=== PATIENT | male | born 1985 | race Caucasian/White ===

== ENCOUNTER 2020-09-02 20:36 | Emergency (ER) | payer OTHER ==
[2020-09-02 20:45] VITALS: BMI 39.9
[2020-09-02] MEDS ORDERED: KETOROLAC TROMETHAMINE 30 MG/1 ML VIAL IVPUSH ONE (20:48)
[2020-09-02] MEDS ORDERED: ONDANSETRON 4 MG/2 ML VIAL IVPUSH ONE (20:48)
[2020-09-02] MEDS ORDERED: SODIUM CHLORIDE 1,000 ML IV STA (20:49)
[2020-09-02] MEDS ORDERED: KETOROLAC TROMETHAMINE 30 MG/1 ML VIAL ONE (21:32)
[2020-09-02] MEDS ORDERED: ONDANSETRON 4 MG/2 ML VIAL ONE (21:32)
[2020-09-02 22:00] LABS: BASO % 0.4 % (0-2.0); HEMATOCRIT 49.8 % (35.4-49); HEMOGLOBIN 16.8 GM/dL (11.7-16.9); LYMPH % 5.9 % (8-40); MCH 28.9 pg (25.7-33.7); MCHC 33.7 g/dl (32.0-35.9); MEAN CELL VOLUME 85.6 fl (80-96); MEAN PLT VOLUME 8.3 fl (7.5-11.1); MONO % 2.1 % (3.8-10.2); NEUT % 91.6 % (42.8-82.8); PLATELET COUNT 346 K/MM3 (134-434); RBC 5.81 M/mm3 (4.00-5.60); WHITE BLOOD COUNT 16.5 K/mm3 (4.0-10.0)
[2020-09-02 22:05] LABS: PROTHROMBIN TIME (PATIENT) 12.3 SEC (9.7-13.0)
[2020-09-02 22:25] LABS: POTASSIUM 3.9 mmol/L (3.5-5.1)
[2020-09-02 22:27] LABS: CALCIUM 10.6 mg/dL (8.5-10.1)
[2020-09-02 22:28] LABS: ALBUMIN 4.5 g/dl (3.4-5.0)
[2020-09-02 22:30] LABS: CREATININE 1.1 mg/dL (0.55-1.3)
[2020-09-02 22:32] LABS: BILIRUBIN,TOTAL 0.6 mg/dL (0.2-1); TOT PROT 8.6 g/dl (6.4-8.2)
[2020-09-02 22:55] LABS: PLATELET ESTIMATE NORMAL
[2020-09-02] MEDS ORDERED: morphine CARPU-JECT 4 MG/1 ML DISP.SYRIN IVPUSH ONE (23:01)
[2020-09-02] MEDS ORDERED: SODIUM CHLORIDE 0.9% 500 ML INFUS.BAG IV ONE (23:05)
[2020-09-02] MEDS ORDERED: morphine SULFATE 4 MG/ML VIAL ONE (23:10)
[2020-09-02 23:34] LABS: EPI CELLS >36 /uL (0-25.1); HYALINE CASTS 11 /uL (0-3.1); PH,URINE 7.5 (5.0-8.0); URINE APPEARANCE CLEAR; URINE BACTERIA 72 /uL (0-1359); URINE BILIRUBIN NEGATIVE (NEGATIVE); URINE COLOR DK YELLOW; URINE GLUCOSE (UA) NEGATIVE (NEGATIVE); URINE KETONE 1+ (NEGATIVE); URINE LEUK ESTERASE NEGATIVE (NEGATIVE); URINE NITRITE NEGATIVE (NEGATIVE); URINE PROTEIN 1+ (NEGATIVE); URINE UROBILINOGEN 0.2 mg/dL (0.2-1.0); URINE WBC 10 /uL (0-25.8)
[2020-09-02 23:53] LABS: URINE RBC 55.1 /uL (0-23.9)
[2020-09-03] MEDS ORDERED: SUCRALFATE 1 GM/10 ML UNIT DOSE CUPS PO ONE (01:09)
[2020-09-03] MEDS ORDERED: SUCRALFATE 1 GM TABLET (FP) ONE (01:17)
[2020-09-03 01:30] VITALS: BP 112/58; PULSE 82; TEMP 99.5
== END 2020-09-03 02:05 | disposition home or self-care (01) ==
LOC: JER 20:36
PROC: 3E0333Z Introduction of Anti-inflammatory into Peripheral Vein, Percutaneous Approach (ICD-10-PCS; principal; 2020-09-02)
PROC: 3E033NZ Introduction of Analgesics, Hypnotics, Sedatives into Peripheral Vein, Percutaneous Approach (ICD-10-PCS; 2020-09-02)
PROC: 3E033GC Introduction of Other Therapeutic Substance into Peripheral Vein, Percutaneous Approach (ICD-10-PCS; 2020-09-02)
PROC: 3E0337Z Introduction of Electrolytic and Water Balance Substance into Peripheral Vein, Percutaneous Approach (ICD-10-PCS; 2020-09-02)
PROC: 3E0337Z Introduction of Electrolytic and Water Balance Substance into Peripheral Vein, Percutaneous Approach (ICD-10-PCS; 2020-09-02)
DX: R11.2 Nausea with vomiting, unspecified (principal); R19.7 Diarrhea, unspecified
CPT/HCPCS: 36415; 74177-TC; 76870-TC; 80053; 81003; 83690; 85025; 85610; 86850; 86900; 86901; 99285-25